=== PATIENT | male | born 1960 | race Caucasian/White ===

== ENCOUNTER → 2024-06-18 06:36 | Outpatient (CLI) | payer OTHER, SELFPAY ==
--- NOTE | 2024-06-18 06:40 | DI.ECHO.S_ITS ---
[facility]+ [facility] : : [address] : [place] : : [id number] : : Phone: [phone] Echocardiogram Report + + :Name: SKIP HADLEY Study Date: 06/18/2024 Height: 71 in : :Hospital ReadingLocation: Weight: 215 lb : : Gender: Male BSA: 2.2 m2 : :: 1960 Age: 63 yrs BP: 148/82 mmHg: :Reason For Study: CHEST PAIN : :Ordering Physician: CELESTINA, : :SUDEEP Performed By: Vince Vargas : :Referring: SUDEEP OSCAR : + + Interpretation Summary The left ventricle is normal in size. The ejection fraction is estimated to be 55-60%. The right ventricle is at the upper limits of normal in size. The right ventricular systolic function is normal. There is mild to moderate mitral regurgitation. There is a bioprosthetic aortic valve. The prosthetic aortic valve is well-seated. The peak aortic velocity is 2.98 m/sec. The aortic valve mean gradient is 20.6 mmHg.JANE(I,D): 1.2 cm2 sev ratio: 0.42. No hemodynamically significant aortic stenosis. There is mild perivalvular regurgitation around the prosthetic aortic valve. There is mild tricuspid regurgitation.The right ventricular systolic pressure is estimated to be at least 39 mmHg based on an estimated right atrial pressure of 8 mm Hg. The ascending aorta is mildly enlarged. The IVC is dilated (diameter is greater than 2.1 cm) yet it collapses greater than 50% with a sniff. This suggests a right atrial pressure of 8 mm Hg. Procedure: A two-dimensional transthoracic echocardiogram with color flow and Doppler was performed. The study quality was technically good. There is no prior echocardiogram noted for this patient. The patient was in normal sinus rhythm during the exam. Left Ventricle: The left ventricle is normal in size. Left ventricular wall thickness is mildly increased. There is no thrombus. The ejection fraction is estimated to be 55-60%. There are no focal wall motion abnormalities. Diastolic parameters suggest probable normal left ventricular diastolic function and normal filling pressures. Right Ventricle: The right ventricle is at the upper limits of normal in size. The right ventricular systolic function is normal. Atria: The left atrium is moderately dilated. The right atrium is moderately dilated. There is no Doppler evidence for an atrial septal defect. Mitral Valve: The mitral valve leaflets appear mildly thickened, but open well. There is mild mitral annular calcification. There is mild to moderate mitral regurgitation. Aortic Valve: There is a bioprosthetic aortic valve. The prosthetic aortic valve is well-seated. There is mild perivalvular regurgitation around the prosthetic aortic valve. The peak aortic velocity is 2.98 m/sec. The aortic valve mean gradient is 20.6 mmHg. Tricuspid Valve: The tricuspid valve is normal. There is mild tricuspid regurgitation. The right ventricular systolic pressure is estimated to be at least 39 mmHg based on an estimated right atrial pressure of 8 mm Hg. Pulmonic Valve: The pulmonic valve is not well visualized. There is trace pulmonic regurgitation. Great Vessels: The aortic root is mildly dilated. The ascending aorta is mildly enlarged. The pulmonary artery is normal size. The IVC is dilated (diameter is greater than 2.1 cm) yet it collapses greater than 50% with a sniff. This suggests a right atrial pressure of 8 mm Hg. Pericardium/ Pleura There is no pericardial effusion. There is no pleural effusion. MMode/2D Measurements & Calculations LVIDd: 5.3 cm LVOT diam: 1.9 cm LVIDs: 3.6 cm Ao root diam: 4.2 cm FS: 31.3 % asc Aorta Diam: 4.2 cm EPSS: 0.52 cm Ao Arch Diam (Prox Trans): 2.2 cm IVSd: 1.1 cm LVPWd: 1.1 cm LV evangelista. diameter/BSA (cm/m^2): 2.4 LV sys. diameter/BSA (cm/m^2): 1.7 LA A2 area: 29.1 cm2 RA long axis: 6.5 cm LA A4 area: 27.4 cm2 RA area: 25.2 cm2 LA length (vol): 6.4 cm RA vol: 83.5 ml LA vol: 105.4 ml RA : 38.4 ml/m2 LA vol index: 48.5 ml/m2 IVC diam: 2.2 cm RVD1 (basal): 4.2 cm RVD2 (mid): 3.1 cm TAPSE: 2.3 cm Doppler Measurements & Calculations Ao V2 max: 298.2 cm/sec LVOT Max Afshin: 101.1 cm/sec Ao V2 mean: 213.4 cm/sec LV V1 max P.1 mmHg Ao max P.6 mmHg LV V1 VTI: 28.3 cm Ao mean P.6 mmHg JANE(I,D): 1.2 cm2 Ao V2 VTI: 67.4 cm JANE(V,D): 0.99 cm2 sev ratio: 0.42 JANE indexed to BSA (cm^2/m^2): 0.57 MV E max afshin: 80.7 cm/sec TR max afshin: 276.6 cm/sec MV A max afshin: 43.5 cm/sec TR max P.6 mmHg MV E/A: 1.9 PA V2 max: 139.3 cm/sec Med Peak E' Afshin: 8.8 cm/sec PA V2 mean: 89.6 cm/sec E/E' med: 9.1 PA mean P.8 mmHg Lat Peak E' Afshin: 9.0 cm/sec PA pr(Accel): 51.6 mmHg E/E' lat: 9.0 E/e' average: 9.0 MV dec time: 0.20 sec SV(LVOT): 82.9 ml Reading Physician:11:17 AM
--- NOTE | 2024-06-18 06:40 | DI.RAD.S_ITS ---
PROCEDURE: XR CHEST 2V INDICATIONS: Chest pain TECHNIQUE: 2 views of the chest were acquired. COMPARISON: None. FINDINGS: Surgical changes and devices: Sternal wires. Lungs and pleura: Lungs are clear. No pleural effusions or pneumothorax. Mediastinum: Mediastinal contours are normal. Heart size is normal. Bones and chest wall: No suspicious bony abnormalities. Soft tissues appear unremarkable. IMPRESSION: No acute pulmonary process. Dictated by: Adriana Vo M.D. on 06/18/2024 at 9:21 Approved by: Adriana Vo M.D. on 06/18/2024 at 9:21
== END ==
PROVIDERS: Referring Provider Chiropractor; Visit Provider Chiropractor
DX: I08.3 Combined rheumatic disorders of mitral, aortic and tricuspid valves (principal); I77.810 Thoracic aortic ectasia; I77.89 Other specified disorders of arteries and arterioles; J98.4 Other disorders of lung; R07.9 Chest pain, unspecified; Z95.2 Presence of prosthetic heart valve; R94.2 Abnormal results of pulmonary function studies
CPT/HCPCS: 71046; 93306; 94060

== ENCOUNTER → 2024-06-18 06:41 | Outpatient (CLI) | payer OTHER, SELFPAY | PROVIDERS: Referring Provider Chiropractor; Visit Provider Chiropractor | DX: J98.4 Other disorders of lung (principal); R07.9 Chest pain, unspecified; R94.2 Abnormal results of pulmonary function studies | CPT/HCPCS: 94060 ==